=== PATIENT | male | born 1975 | race Caucasian/White ===

== ENCOUNTER 2020-05-29 13:22 | Inpatient (IN) ==
[2020-05-29] MEDS ORDERED: Aspirin 325 MG TABLET PO ONE (14:09)
[2020-05-29 14:41] LABS: Bilirubin,Urine Negative (Negative); Blood,Urine Negative (Negative); Clarity,Urine Clear (Clear); Color,Urine Light-Yellow (Yellow); Glucose,Urine (UA) Normal (Normal); Ketones,Urine Negative (Negative); Leukocyte Esterase,Urine Negative (Negative); Nitrite,Urine Negative (Negative); Protein,Urine 30 mg/dL (Neg-Trace); RBC,Urine 0-3 per hpf (0-3); Specific Gravity,Urine 1.019 (1.010-1.025); Urobilinogen,Urine Normal (Normal); WBC,Urine 0-3 per hpf (0-3)
[2020-05-29 14:54] LABS: Basophils # 0.1 K/mcL (0.0-0.2); Basophils % 0.5 %; Eosinophils # 0.2 K/mcL (0.0-0.6); Eosinophils % 2.4 %; Hematocrit 42.5 % (37.5-50.1); Hemoglobin 13.7 g/dL (12.9-16.9); Immature Granulocytes % 0.3 % (0-4); Lymphocytes # 1.9 K/mcL (0.6-4.6); Lymphocytes % 19.8 %; Mean Corpuscular HGB Conc 32.2 g/dL (31.6-35.5); Mean Corpuscular Hemoglobin 25.3 pg (28.0-33.3); Mean Corpuscular Volume 78.4 fL (83.0-100.0); Mean Platelet Volume 9.3 fL (9.4-12.4); Monocytes # 0.6 K/mcL (0.0-1.3); Monocytes % 6.1 %; Neutrophils # 6.9 K/mcL (1.6-8.9); Platelet Count 306 K/mcL (140-400); Red Blood Count 5.42 M/mcL (4.19-5.50); Red Cell Distribution Width 14.4 % (11.5-14.5); Segmented Neutrophils % 70.9 %; White Blood Count 9.7 K/mcL (4.3-11.1)
[2020-05-29 15:06] LABS: BUN/Creatinine Ratio 16 (6-26); Blood Urea Nitrogen 16 mg/dL (6-20); Calcium 8.7 mg/dL (8.6-10.3); Carbon Dioxide 28 mEq/L (23-29); Chloride 101 mEq/L (98-107); Glucose 103 mg/dL (70-105); Osmolality,Calculated 285 (280-300); Potassium 3.2 mEq/L (3.5-5.1); Sodium 137 mEq/L (136-145); eGFR For African Americans > 60 (> 60); eGFR For Non-African Americans > 60 (> 60)
[2020-05-29 15:07] LABS: Troponin I < 0.03 ng/mL (< 0.04)
[2020-05-29] MEDS ORDERED: *HR* Metoprolol 5 MG/5 ML VIAL IVP ONE (15:39)
[2020-05-29] MEDS ORDERED: Naloxone 0.4 MG/ML INJ IVP PRN (16:24)
[2020-05-29 17:13] LABS: Amphetamine Screen,Urine Negative ng/mL (Cutoff=1000); Barbiturate Screen,Urine Negative ng/mL (Cutoff=200); Benzodiazepines Screen,Urine Negative ng/mL (Cutoff=200); Cannabinoid Screen,Urine Negative ng/mL (Cutoff = 50); Cocaine Screen,Urine Negative ng/mL (Cutoff= 300); Opiate Screen,Urine Negative ng/mL (Cutoff=300); Phencyclidine Screen,Urine Negative ng/mL (Cutoff=25)
[2020-05-29] MEDS ORDERED: Perflutren Lipid Microsphere 1.3 ML in 0.9 % Sodium Chloride 8.7 ML IVP PRN (17:31)
[2020-05-29] MEDS: hydrALAZINE 10 MG TABLET PO SCH ×2 (18:24→23:06)
[2020-05-29] MEDS: Morphine Sulfate 2 MG/ML SYRINGE IVP PRN (18:24)
[2020-05-29 20:47] LABS: Troponin I < 0.03 ng/mL (< 0.04)
[2020-05-29 21:00] LABS: Thyroid Stimulating Hormone 2.509 mcIU/mL (0.340-5.600)
[2020-05-29] MEDS: *HR* OxyCODONE/APAP 5/325 TABLET PO SCH (23:06)
[2020-05-30] MEDS: *HR* Enoxaparin 40 MG/0.4 ML SYRINGE SQ SCH (05:09)
[2020-05-30] MEDS: hydrALAZINE 10 MG TABLET PO SCH ×2 (05:09→10:55)
[2020-05-30] MEDS: *HR* OxyCODONE/APAP 5/325 TABLET PO SCH ×2 (07:23→15:02)
[2020-05-30] MEDS ORDERED: Nitroglycerin 0.4 MG TAB.SUBL SL PRN (12:49)
[2020-05-30] MEDS: cloNIDine HCL 0.1 MG TABLET PO SCH ×2 (14:06→20:36)
[2020-05-30] MEDS: amLODIPine 5 MG TABLET PO SCH (14:07)
[2020-05-30] MEDS: Metoprolol 100 MG TABLET PO SCH ×2 (14:08→20:36)
[2020-05-30] MEDS: hydrALAZINE 25 MG TABLET PO SCH ×2 (17:53→23:34)
[2020-05-30] MEDS: Insulin LISPRO 300 UNITS/3 ML VIAL SQ SCH (20:49)
[2020-05-31] MEDS: *HR* OxyCODONE/APAP 5/325 TABLET PO SCH ×3 (05:01→17:00)
[2020-05-31] MEDS: hydrALAZINE 25 MG TABLET PO SCH ×3 (05:06→16:59)
[2020-05-31] MEDS: *HR* Enoxaparin 40 MG/0.4 ML SYRINGE SQ SCH (05:06)
[2020-05-31] MEDS ORDERED: Regadenoson 0.4 MG/5 ML SYRINGE IVP ONE (06:01)
[2020-05-31] MEDS: Insulin LISPRO 300 UNITS/3 ML VIAL SQ SCH ×4 (09:41→20:13)
[2020-05-31] MEDS: cloNIDine HCL 0.1 MG TABLET PO SCH ×2 (09:47→19:50)
[2020-05-31] MEDS: Metoprolol 100 MG TABLET PO SCH (09:47)
[2020-05-31] MEDS: amLODIPine 5 MG TABLET PO SCH (09:47)
[2020-05-31 09:51] LABS: Estimated Average Glucose 137 mg/dl
[2020-05-31 10:15] LABS: Chol/HDL Ratio 4.8 (0-4.9)
[2020-05-31] MEDS: carvediloL 6.25 MG TABLET PO SCH (16:59)
[2020-05-31] MEDS: Aspirin 81 MG TAB.CHEW PO SCH (16:59)
[2020-06-01] MEDS: *HR* Enoxaparin 40 MG/0.4 ML SYRINGE SQ SCH (00:11)
[2020-06-01] MEDS: hydrALAZINE 25 MG TABLET PO SCH ×4 (00:12→16:36)
[2020-06-01] MEDS: *HR* OxyCODONE/APAP 5/325 TABLET PO SCH ×2 (00:12→22:58)
[2020-06-01] MEDS ORDERED: *HR* OxyCODONE/APAP 5/325 TABLET PO PRN (08:09)
[2020-06-01] MEDS: Aspirin 81 MG TAB.CHEW PO SCH (08:30)
[2020-06-01] MEDS: amLODIPine 5 MG TABLET PO SCH (08:31)
[2020-06-01] MEDS: carvediloL 6.25 MG TABLET PO SCH ×2 (08:32→16:35)
[2020-06-01] MEDS: cloNIDine HCL 0.1 MG TABLET PO SCH ×2 (08:32→20:06)
[2020-06-01] MEDS: Insulin LISPRO 300 UNITS/3 ML VIAL SQ SCH ×4 (08:39→20:07)
[2020-06-01 09:05] LABS: Basophils # 0.1 K/mcL (0.0-0.2); Basophils % 0.8 %; Eosinophils # 0.3 K/mcL (0.0-0.6); Eosinophils % 3.1 %; Hematocrit 44.1 % (37.5-50.1); Hemoglobin 14.1 g/dL (12.9-16.9); Immature Granulocytes % 0.3 % (0-4); Lymphocytes # 1.5 K/mcL (0.6-4.6); Lymphocytes % 18.8 %; Mean Corpuscular Hemoglobin 24.9 pg (28.0-33.3); Mean Corpuscular Volume 77.9 fL (83.0-100.0); Mean Platelet Volume 8.9 fL (9.4-12.4); Monocytes # 0.5 K/mcL (0.0-1.3); Neutrophils # 5.7 K/mcL (1.6-8.9); Platelet Count 299 K/mcL (140-400); Red Blood Count 5.66 M/mcL (4.19-5.50); Red Cell Distribution Width 14.6 % (11.5-14.5)
[2020-06-01 09:22] LABS: BUN/Creatinine Ratio 18 (6-26); Blood Urea Nitrogen 18 mg/dL (6-20); Calcium 8.9 mg/dL (8.6-10.3); Carbon Dioxide 31 mEq/L (23-29); Chloride 101 mEq/L (98-107); Glucose 115 mg/dL (70-105); Osmolality,Calculated 291 (280-300); Potassium 3.2 mEq/L (3.5-5.1); Sodium 139 mEq/L (136-145); eGFR For African Americans > 60 (> 60); eGFR For Non-African Americans > 60 (> 60)
[2020-06-01] MEDS ORDERED: Nitroglycerin 1,000 MCG/10 ML VIAL IV ONE (13:06)
[2020-06-01] MEDS ORDERED: *HR* Heparin 10,000 UNIT/10 ML VIAL ONE (13:06)
[2020-06-01] MEDS ORDERED: ISOVUE-370 200 ML INFUS..BTL ONE (13:06)
[2020-06-01] MEDS ORDERED: Heparin 1,000 UNITS/500 mL 500 ML ONE (13:06)
[2020-06-01] MEDS ORDERED: 0.9 % Sodium Chloride 2,000 ML ONE (13:06)
[2020-06-01] MEDS ORDERED: *HR* Midazolam HCl 2 MG/2 ML VIAL ONE (13:34)
[2020-06-01] MEDS ORDERED: *HR* FentaNYL (PF) 100 MCG/2 ML VIAL ONE (13:35)
[2020-06-01] MEDS ORDERED: 0.9 % Sodium Chloride 1,000 ML IVC SCH (14:45)
[2020-06-01] MEDS: Morphine Sulfate 2 MG/ML SYRINGE IVP PRN (16:54)
[2020-06-01] MEDS: Chlorhexidine Rinse 15 ML MOUTHWASH MM SCH (20:06)
[2020-06-02] MEDS: *HR* Enoxaparin 40 MG/0.4 ML SYRINGE SQ SCH (00:15)
[2020-06-02] MEDS: hydrALAZINE 25 MG TABLET PO SCH ×2 (00:29→06:00)
[2020-06-02] MEDS: Chlorhexidine Rinse 15 ML MOUTHWASH MM SCH ×2 (06:00→21:09)
[2020-06-02] MEDS ORDERED: NiCARdipine 2.5 MG/10 ML Syringe IVPB ONE (06:29)
[2020-06-02] MEDS ORDERED: *HR* Midazolam HCl 5 MG/5 ML VIAL IVP ONE ×2 (06:32→12:58)
[2020-06-02] MEDS ORDERED: *HR* FentaNYL (PF) 1,000 MCG/20 ML VIAL ONE (06:33)
[2020-06-02] MEDS ORDERED: *HR* PHENYLEPHRINE 1,000 MCG/10 ML SYRINGE IVP ONE (06:34)
[2020-06-02] MEDS ORDERED: *HR* Rocuronium Bromide 50 MG/5 ML VIAL ONE ×2 (06:34→11:10)
[2020-06-02] MEDS ORDERED: *HR* Etomidate 20 MG/10 ML AMPUL IVP ONE (06:35)
[2020-06-02] MEDS ORDERED: Famotidine 20 MG/2 ML VIAL ONE (06:35)
[2020-06-02] MEDS: Aspirin 81 MG TAB.CHEW PO SCH (06:36)
[2020-06-02] MEDS ORDERED: Calcium Gluconate 1,000 MG/10 ML VIAL ONE (06:38)
[2020-06-02] MEDS ORDERED: Protamine Sulfate 250 MG/25 ML VIAL IVP ONE (06:38)
[2020-06-02] MEDS ORDERED: Tranexamic Acid 1,000 MG/10 ML VIAL ONE ×3 (06:38→11:08)
[2020-06-02] MEDS ORDERED: niCARdipine 40 MG/200 ML MLS IVC ONE (06:40)
[2020-06-02] MEDS ORDERED: EPINEPHrine 1 MG/ML VIAL ONE (06:51)
[2020-06-02] MEDS ORDERED: Clindamycin 900 MG/50 ML 900 MG/50 ML IV.SOLN IVPB ONE ×2 (07:00→08:00)
[2020-06-02] MEDS ORDERED: Papaverine 60 MG/2 ML VIAL IVP ONE (07:06)
[2020-06-02] MEDS ORDERED: Dextrose 50 % in Water (Vial) 30 ML, Sodium Bicarbonate 20 MEQ, Potassium Chloride 15 M... TH ONE (07:45)
[2020-06-02] MEDS ORDERED: Heparin 15,000 UNIT in 0.9 % Sodium Chloride 500 ML IV ONE (07:45)
[2020-06-02] MEDS ORDERED: Norepinephrine 4 MG in 0.9 % Sodium Chloride 250 ML IVC PRN (07:45)
[2020-06-02] MEDS ORDERED: Insulin Human Regular 100 UNIT in 0.9 % Sodium Chloride 100 ML IV PRN (07:45)
[2020-06-02] MEDS ORDERED: Dextrose 50 % in Water (Vial) 30 ML, Sodium Bicarbonate 20 MEQ, Lidocaine 1% 5 ML, Insu... TH ONE ×3 (07:45)
[2020-06-02] MEDS ORDERED: Vancomycin 2,000 MG/520 ML IV.SOLN IVPB ONE (08:11)
[2020-06-02 08:47] LABS: ABG Base Excess 5 mEq/L (-2 to 3); ABG Chloride 100 mEq/L (98-107); ABG Glucose 119 mg/dL (60-95); ABG HCO3 32 mEq/L (21-27); ABG Ionized Calcium 1.18 mmol/L (1.15-1.35); ABG Oxygen Saturation 99 % (95-98); ABG PCO2 53 mmHg (35-45); ABG PH 7.38 pH Units (7.32-7.45); ABG PO2 152 mmHg (85-104); ABG TCO2 33 mEq/L (20-26)
[2020-06-02] MEDS ORDERED: *HR* Heparin 10,000 UNIT/10 ML VIAL IR ONE (08:59)
[2020-06-02] MEDS ORDERED: Albumin Human 25% 25 GM/100 ML IV.SOLN IVPB ONE (08:59)
[2020-06-02] MEDS ORDERED: *HR* Phenylephrine 10 MG/ML VIAL IVC ONE (08:59)
[2020-06-02] MEDS ORDERED: Lidocaine 2% Syringe 100 MG/5 ML IVP ONE (08:59)
[2020-06-02] MEDS ORDERED: Mannitol 25% vial 12.5 GM/50 ML VIAL IVPB ONE (08:59)
[2020-06-02] MEDS ORDERED: Tranexamic Acid 1,000 MG/10 ML VIAL IR ONE (08:59)
[2020-06-02] MEDS ORDERED: *HR* Magnesium Sulfate 2 GM/50 ML PIGGYBACK IVPB ONE (08:59)
[2020-06-02 10:24] LABS: ABG Base Excess 1 mEq/L (-2 to 3); ABG Chloride 103 mEq/L (98-107); ABG Glucose 132 mg/dL (60-95); ABG HCO3 25 mEq/L (21-27); ABG Ionized Calcium 0.98 mmol/L (1.15-1.35); ABG Oxygen Saturation 94 % (95-98); ABG PCO2 37 mmHg (35-45); ABG PH 7.44 pH Units (7.32-7.45); ABG PO2 66 mmHg (85-104); ABG TCO2 26 mEq/L (20-26)
[2020-06-02 10:47] LABS: ABG Base Excess 4 mEq/L (-2 to 3); ABG Chloride 99 mEq/L (98-107); ABG Glucose 135 mg/dL (60-95); ABG HCO3 28 mEq/L (21-27); ABG Ionized Calcium 1.04 mmol/L (1.15-1.35); ABG Oxygen Saturation 100 % (95-98); ABG PCO2 39 mmHg (35-45); ABG PH 7.47 pH Units (7.32-7.45); ABG PO2 544 mmHg (85-104); ABG TCO2 29 mEq/L (20-26)
[2020-06-02] MEDS ORDERED: *HR* Amiodarone 150 MG/3 ML VIAL IVPB ONE (11:28)
[2020-06-02] MEDS ORDERED: Amiodarone Premix 360 MG/200 ML BAG IVC ONE (11:28)
[2020-06-02 11:36] LABS: ABG Base Excess 3 mEq/L (-2 to 3); ABG Chloride 97 mEq/L (98-107); ABG Glucose 159 mg/dL (60-95); ABG HCO3 27 mEq/L (21-27); ABG Ionized Calcium 1.02 mmol/L (1.15-1.35); ABG Oxygen Saturation 100 % (95-98); ABG PCO2 39 mmHg (35-45); ABG PH 7.45 pH Units (7.32-7.45); ABG PO2 422 mmHg (85-104); ABG TCO2 28 mEq/L (20-26)
[2020-06-02 12:34] LABS: ABG Base Excess 2 mEq/L (-2 to 3); ABG Chloride 99 mEq/L (98-107); ABG Glucose 131 mg/dL (60-95); ABG HCO3 26 mEq/L (21-27); ABG Ionized Calcium 1.13 mmol/L (1.15-1.35); ABG Oxygen Saturation 96 % (95-98); ABG PCO2 39 mmHg (35-45); ABG PH 7.44 pH Units (7.32-7.45); ABG PO2 80 mmHg (85-104); ABG TCO2 28 mEq/L (20-26)
[2020-06-02] MEDS ORDERED: Albumin Human 5% 12.5 GM/250 ML IV.SOLN ONE (12:40)
[2020-06-02] MEDS ORDERED: niCARdipine 20 MG/200 ML MLS IVC ONE (12:40)
[2020-06-02] MEDS ORDERED: Insulin Regular, Human 100 UNIT/ML IV PRN (13:04)
[2020-06-02] MEDS ORDERED: Potassium Chloride 40 MEQ/200 ML BAG IVPB PRN (13:04)
[2020-06-02] MEDS ORDERED: *HR* Dextrose 50 % in Water (Vial) 50 ML VIAL IVP PRN (13:04)
[2020-06-02] MEDS ORDERED: Acetaminophen 325 MG TABLET PO PRN (13:05)
[2020-06-02] MEDS ORDERED: Acetaminophen 650 MG RECTAL SUPP RC PRN (13:05)
[2020-06-02] MEDS ORDERED: Albumin Human 5% 12.5 GM/250 ML IV.SOLN IVPB PRN (13:08)
[2020-06-02] MEDS ORDERED: Calcium Gluconate 1gm/50mL 1 GM/50 ML BAG IVPB PRN (13:08)
[2020-06-02] MEDS ORDERED: Ondansetron 4 MG/2 ML VIAL IVP PRN (13:08)
[2020-06-02] MEDS ORDERED: 0.9 % Sodium Chloride w KCl 20 MEQ/1,000 ML MLS IVC SCH (13:15)
[2020-06-02] MEDS ORDERED: Norepinephrine 4 MG/254 ML IV.SOLN IVC SCH (13:15)
[2020-06-02] MEDS ORDERED: Insulin Human Regular 100 UNIT in 0.9 % Sodium Chloride 100 ML IVC SCH (13:15)
[2020-06-02] MEDS: Amiodarone Premix 360 MG/200 ML BAG IVC ONE ×2 (13:42→16:44)
[2020-06-02 14:03] LABS: ABG Base Excess 3 mEq/L (-2 to 3); ABG HCO3 28 mEq/L (21-27); ABG Oxygen Saturation 91 % (95-98); ABG PCO2 41 mmHg (35-45); ABG PH 7.44 pH Units (7.32-7.45); ABG PO2 60 mmHg (85-104); ABG TCO2 29 mEq/L (20-26); Blood Gas Modality ASSIST CONTROL; Blood Gas VT 850 cc
[2020-06-02 14:07] LABS: Basophils # 0.1 K/mcL (0.0-0.2); Basophils % 0.3 %; Eosinophils # 0.3 K/mcL (0.0-0.6); Eosinophils % 1.4 %; Hematocrit 38.6 % (37.5-50.1); Hemoglobin 12.8 g/dL (12.9-16.9); Immature Granulocytes % 0.7 % (0-4); Lymphocytes # 2.3 K/mcL (0.6-4.6); Lymphocytes % 10.9 %; Mean Corpuscular HGB Conc 33.2 g/dL (31.6-35.5); Mean Corpuscular Hemoglobin 25.9 pg (28.0-33.3); Mean Platelet Volume 8.8 fL (9.4-12.4); Monocytes # 1.2 K/mcL (0.0-1.3); Monocytes % 5.5 %; Neutrophils # 17.2 K/mcL (1.6-8.9); Platelet Count 270 K/mcL (140-400); Red Blood Count 4.95 M/mcL (4.19-5.50); Red Cell Distribution Width 14.5 % (11.5-14.5); Segmented Neutrophils % 81.2 %
[2020-06-02 14:08] LABS: White Blood Count 21.2 K/mcL (4.3-11.1)
[2020-06-02 14:21] LABS: BUN/Creatinine Ratio 21 (6-26); Blood Urea Nitrogen 18 mg/dL (6-20); Calcium 8.4 mg/dL (8.6-10.3); Carbon Dioxide 28 mEq/L (23-29); Chloride 104 mEq/L (98-107); Glucose 133 mg/dL (70-105); Magnesium 2.1 mg/dL (1.6-2.6); Osmolality,Calculated 290 (280-300); Potassium 3.1 mEq/L (3.5-5.1); Sodium 138 mEq/L (136-145); eGFR For African Americans > 60 (> 60); eGFR For Non-African Americans > 60 (> 60)
[2020-06-02 14:23] LABS: Activated Partial Thrombo Time 30.4 Seconds (26.0-36.0); INR 1.4; Prothrombin Time 16.3 Seconds (9.4-12.1)
[2020-06-02] MEDS: cloNIDine HCL 0.1 MG TABLET PO SCH (14:31)
[2020-06-02] MEDS: amLODIPine 5 MG TABLET PO SCH (14:32)
[2020-06-02] MEDS: *HR* FentaNYL (PF) 100 MCG/2 ML VIAL IVP PRN ×2 (15:44→18:54)
[2020-06-02] MEDS: Pantoprazole 40 MG VIAL IVP SCH (16:24)
[2020-06-02] MEDS: Clindamycin 900 MG/50 ML 900 MG/50 ML IV.SOLN IVPB SCH ×2 (16:25→23:37)
[2020-06-02 16:59] LABS: ABG Base Excess 4 mEq/L (-2 to 3); ABG HCO3 25 mEq/L (21-27); ABG Oxygen Saturation 97 % (95-98); ABG PCO2 29 mmHg (35-45); ABG PH 7.56 pH Units (7.32-7.45); ABG PO2 73 mmHg (85-104); ABG TCO2 26 mEq/L (20-26); Blood Gas Modality ASSIST CONTROL; Blood Gas VT 850 cc
[2020-06-02] MEDS ORDERED: Ketorolac 15 MG/ML VIAL IVP SCH (18:00)
[2020-06-02] MEDS: Metoclopramide 10 MG/2 ML VIAL IVP SCH ×2 (18:19→23:37)
[2020-06-02] MEDS: niCARdipine 20 MG/200 ML MLS IVC SCH ×3 (19:00→23:35)
[2020-06-02 19:50] LABS: ABG Base Excess 3 mEq/L (-2 to 3); ABG HCO3 28 mEq/L (21-27); ABG Oxygen Saturation 89 % (95-98); ABG PCO2 45 mmHg (35-45); ABG PO2 56 mmHg (85-104); ABG TCO2 30 mEq/L (20-26)
[2020-06-02] MEDS: *HR* OxyCODONE/APAP 5/325 TABLET PO PRN (23:47)
[2020-06-03] MEDS: *HR* OxyCODONE/APAP 5/325 TABLET PO PRN ×5 (03:54→21:54)
[2020-06-03 04:02] LABS: Basophils % 0.1 %; Hematocrit 37.9 % (37.5-50.1); Hemoglobin 12.2 g/dL (12.9-16.9); Immature Granulocytes % 0.4 % (0-4); Lymphocytes # 0.9 K/mcL (0.6-4.6); Lymphocytes % 6.5 %; Mean Corpuscular HGB Conc 32.2 g/dL (31.6-35.5); Mean Corpuscular Hemoglobin 25.1 pg (28.0-33.3); Mean Platelet Volume 8.8 fL (9.4-12.4); Monocytes # 1.2 K/mcL (0.0-1.3); Monocytes % 8.6 %; Neutrophils # 11.5 K/mcL (1.6-8.9); Platelet Count 281 K/mcL (140-400); Red Blood Count 4.86 M/mcL (4.19-5.50); Segmented Neutrophils % 84.4 %; White Blood Count 13.6 K/mcL (4.3-11.1)
[2020-06-03 04:05] LABS: INR 1.3
[2020-06-03 04:08] LABS: Activated Partial Thrombo Time 30.1 Seconds (26.0-36.0)
[2020-06-03 04:20] LABS: BUN/Creatinine Ratio 15 (6-26); Blood Urea Nitrogen 16 mg/dL (6-20); Calcium 8.1 mg/dL (8.6-10.3); Carbon Dioxide 27 mEq/L (23-29); Chloride 106 mEq/L (98-107); Glucose 149 mg/dL (70-105); Osmolality,Calculated 292 (280-300); Potassium 3.6 mEq/L (3.5-5.1); Sodium 139 mEq/L (136-145); eGFR For African Americans > 60 (> 60); eGFR For Non-African Americans > 60 (> 60)
[2020-06-03] MEDS: niCARdipine 20 MG/200 ML MLS IVC SCH ×2 (05:08→05:51)
[2020-06-03] MEDS: Metoclopramide 10 MG/2 ML VIAL IVP SCH ×5 (05:11→23:39)
[2020-06-03] MEDS: *HR* FentaNYL (PF) 100 MCG/2 ML VIAL IVP PRN (07:00)
[2020-06-03] MEDS ORDERED: Furosemide 20 MG/2 ML VIAL IVP SCH (09:00)
[2020-06-03] MEDS ORDERED: Aspirin Enteric Coated 81 MG Tablet PO SCH (09:00)
[2020-06-03] MEDS: amLODIPine 5 MG TABLET PO SCH (09:19)
[2020-06-03] MEDS: Chlorhexidine Rinse 15 ML MOUTHWASH MM SCH ×2 (09:19→19:59)
[2020-06-03 10:03] LABS: Urine Collection Volume RANDOM mL
[2020-06-03] MEDS: Morphine Sulfate 2 MG/ML SYRINGE IVP PRN (10:39)
[2020-06-03] MEDS: Pantoprazole 40 MG VIAL IVP SCH (13:40)
[2020-06-03] MEDS ORDERED: D5% in Water 1,000 ML IVC PRN ×2 (14:47→17:16)
[2020-06-03] MEDS ORDERED: Dextrose Gel 15 GM/37.5 ML TUBE PO PRN ×4 (14:47→17:16)
[2020-06-03] MEDS ORDERED: *HR* Dextrose 50 % in Water (Vial) 50 ML VIAL IVP PRN ×2 (14:47→17:16)
[2020-06-03] MEDS ORDERED: Insulin LISPRO 300 UNITS/3 ML VIAL SQ SCH ×2 (16:30→21:00)
[2020-06-03] MEDS ORDERED: Acetaminophen 325 MG TABLET PO PRN (17:16)
[2020-06-03] MEDS ORDERED: Naloxone 0.4 MG/ML INJ IVP PRN (17:16)
[2020-06-03] MEDS ORDERED: Insulin Regular, Human 100 UNIT/ML IV PRN (17:16)
[2020-06-03] MEDS ORDERED: Ondansetron 4 MG/2 ML VIAL IVP PRN (17:16)
[2020-06-03] MEDS ORDERED: Nitroglycerin 0.4 MG TAB.SUBL SL PRN (17:16)
[2020-06-03] MEDS: Insulin LISPRO 300 UNITS/3 ML VIAL SQ SCH (19:51)
[2020-06-03] MEDS: Furosemide 20 MG/2 ML VIAL IVP SCH (19:55)
[2020-06-04] MEDS: *HR* OxyCODONE/APAP 5/325 TABLET PO PRN ×6 (02:10→21:55)
[2020-06-04 04:32] LABS: Basophils % 0.3 %; Eosinophils # 0.1 K/mcL (0.0-0.6); Eosinophils % 0.5 %; Hematocrit 40.6 % (37.5-50.1); Hemoglobin 12.3 g/dL (12.9-16.9); Immature Granulocytes % 0.4 % (0-4); Lymphocytes # 1.2 K/mcL (0.6-4.6); Lymphocytes % 8.4 %; Mean Corpuscular HGB Conc 30.3 g/dL (31.6-35.5); Mean Corpuscular Hemoglobin 25.3 pg (28.0-33.3); Mean Corpuscular Volume 83.4 fL (83.0-100.0); Mean Platelet Volume 9.2 fL (9.4-12.4); Monocytes # 1.4 K/mcL (0.0-1.3); Monocytes % 9.7 %; Platelet Count 257 K/mcL (140-400); Red Blood Count 4.87 M/mcL (4.19-5.50); Red Cell Distribution Width 15.6 % (11.5-14.5); Segmented Neutrophils % 80.7 %; White Blood Count 14.8 K/mcL (4.3-11.1)
[2020-06-04 04:50] LABS: BUN/Creatinine Ratio 12 (6-26); Blood Urea Nitrogen 16 mg/dL (6-20); Calcium 8.2 mg/dL (8.6-10.3); Carbon Dioxide 31 mEq/L (23-29); Chloride 102 mEq/L (98-107); Glucose 136 mg/dL (70-105); Osmolality,Calculated 293 (280-300); Potassium 3.4 mEq/L (3.5-5.1); Sodium 140 mEq/L (136-145); eGFR For African Americans > 60 (> 60); eGFR For Non-African Americans 60 (> 60)
[2020-06-04] MEDS: Metoclopramide 10 MG/2 ML VIAL IVP SCH ×3 (06:18→17:52)
[2020-06-04] MEDS: Aspirin Enteric Coated 81 MG Tablet PO SCH (07:53)
[2020-06-04] MEDS: Insulin LISPRO 300 UNITS/3 ML VIAL SQ SCH ×4 (07:53→21:05)
[2020-06-04] MEDS: amLODIPine 5 MG TABLET PO SCH (07:55)
[2020-06-04] MEDS: Furosemide 20 MG/2 ML VIAL IVP SCH ×2 (07:57→21:04)
[2020-06-04] MEDS: Chlorhexidine Rinse 15 ML MOUTHWASH MM SCH ×2 (07:57→21:01)
[2020-06-04] MEDS: cloNIDine HCL 0.1 MG TABLET PO SCH ×2 (09:27→21:01)
[2020-06-04] MEDS ORDERED: Pantoprazole 40 MG VIAL IVP SCH (13:00)
[2020-06-05] MEDS: Metoclopramide 10 MG/2 ML VIAL IVP SCH ×4 (00:11→17:46)
[2020-06-05] MEDS: *HR* OxyCODONE/APAP 5/325 TABLET PO PRN ×5 (02:28→19:59)
[2020-06-05] MEDS: Aspirin Enteric Coated 81 MG Tablet PO SCH (10:19)
[2020-06-05] MEDS: cloNIDine HCL 0.1 MG TABLET PO SCH ×2 (10:19→21:33)
[2020-06-05] MEDS: Famotidine 20 MG TABLET PO SCH ×2 (10:20→21:36)
[2020-06-05] MEDS: amLODIPine 5 MG TABLET PO SCH (10:26)
[2020-06-05] MEDS: Insulin LISPRO 300 UNITS/3 ML VIAL SQ SCH ×4 (12:51→21:34)
[2020-06-05] MEDS: Chlorhexidine Rinse 15 ML MOUTHWASH MM SCH ×2 (14:32→21:33)
[2020-06-06] MEDS: *HR* OxyCODONE/APAP 5/325 TABLET PO PRN ×2 (06:09→17:52)
[2020-06-06] MEDS: Insulin LISPRO 300 UNITS/3 ML VIAL SQ SCH ×4 (07:55→20:16)
[2020-06-06] MEDS: Famotidine 20 MG TABLET PO SCH ×2 (08:02→20:09)
[2020-06-06] MEDS: Aspirin Enteric Coated 81 MG Tablet PO SCH (08:03)
[2020-06-06] MEDS: amLODIPine 5 MG TABLET PO SCH (08:03)
[2020-06-06] MEDS: Chlorhexidine Rinse 15 ML MOUTHWASH MM SCH ×2 (08:03→20:08)
[2020-06-06] MEDS: cloNIDine HCL 0.1 MG TABLET PO SCH ×2 (08:03→20:09)
[2020-06-07] MEDS: *HR* OxyCODONE/APAP 5/325 TABLET PO PRN (02:37)
[2020-06-07 04:51] LABS: Magnesium 1.9 mg/dL (1.6-2.6)
[2020-06-07] MEDS: Famotidine 20 MG TABLET PO SCH (07:54)
[2020-06-07] MEDS: cloNIDine HCL 0.1 MG TABLET PO SCH (07:54)
[2020-06-07] MEDS: Chlorhexidine Rinse 15 ML MOUTHWASH MM SCH (07:54)
[2020-06-07] MEDS: amLODIPine 5 MG TABLET PO SCH (07:54)
[2020-06-07] MEDS: Aspirin Enteric Coated 81 MG Tablet PO SCH (07:54)
[2020-06-07] MEDS: Insulin LISPRO 300 UNITS/3 ML VIAL SQ SCH (07:55)
[2020-06-07 08:09] LABS: Basophils # 0.1 K/mcL (0.0-0.2); Basophils % 0.6 %; Eosinophils # 0.4 K/mcL (0.0-0.6); Hematocrit 35.1 % (37.5-50.1); Hemoglobin 10.9 g/dL (12.9-16.9); Immature Granulocytes % 0.3 % (0-4); Lymphocytes # 1.8 K/mcL (0.6-4.6); Lymphocytes % 19.4 %; Mean Corpuscular HGB Conc 31.1 g/dL (31.6-35.5); Mean Corpuscular Hemoglobin 24.9 pg (28.0-33.3); Mean Corpuscular Volume 80.3 fL (83.0-100.0); Mean Platelet Volume 9.5 fL (9.4-12.4); Monocytes # 0.7 K/mcL (0.0-1.3); Monocytes % 8.1 %; Neutrophils # 6.1 K/mcL (1.6-8.9); Platelet Count 334 K/mcL (140-400); Red Blood Count 4.37 M/mcL (4.19-5.50); Segmented Neutrophils % 67.6 %; White Blood Count 9.1 K/mcL (4.3-11.1)
[2020-06-07 08:21] LABS: BUN/Creatinine Ratio 16 (6-26); Blood Urea Nitrogen 16 mg/dL (6-20); Calcium 8.7 mg/dL (8.6-10.3); Carbon Dioxide 31 mEq/L (23-29); Chloride 98 mEq/L (98-107); Glucose 132 mg/dL (70-105); Osmolality,Calculated 291 (280-300); Potassium 3.3 mEq/L (3.5-5.1); Sodium 139 mEq/L (136-145); eGFR For African Americans > 60 (> 60); eGFR For Non-African Americans > 60 (> 60)
[2020-06-07 08:26] VITALS: BP 142/79
== END 2020-06-07 09:00 | disposition home or self-care (01) | DRG 234 ==
LOC: 3BNU 13:22 → EMEROOARM 13:22 → SUATTDRO 16:47 → 3BNU 17:40 → ICNU 06-02 08:39
PROVIDERS: ADMIT Family Medicine; ATTEND Internal Medicine